=== PATIENT | female | born 1985 | race Caucasian/White ===

== ENCOUNTER 2020-09-27 18:56 | Day surgery (SDCO) | payer OTHER ==
[~2020-09-27] VITALS: Ht 162.6 cm; Wt 61.8 kg
[2020-09-28] MEDS ORDERED: COLACE100 MG PO (11:16)
[2020-09-28] MEDS ORDERED: ACETAMINOPHEN500 M1 PO (11:16)
[2020-09-28] MEDS ORDERED: MOTRIN600 MG PO (11:16)
[2020-09-28] MEDS ORDERED: OXY-IR 5MG5 MG PO (11:16)
== END 2020-09-28 12:40 | disposition home or self-care (01) ==
LOC: FMS 18:56
PROVIDERS: ADMIT Student in an Organized Health Care Education/Training Program
DX: K35.80 Unspecified acute appendicitis (principal); K66.0 Peritoneal adhesions (postprocedural) (postinfection); N83.202 Unspecified ovarian cyst, left side; D64.9 Anemia, unspecified
CPT/HCPCS: G0378; J1100; J1170; J1644; J2250; J2405; J2704; J3010; J7120